=== PATIENT | male | born 1960 | race African-American/Black ===

== ENCOUNTER 2022-02-14 10:22 | Inpatient (IN) | payer MEDICAID ==
[~2022-02-14] VITALS: Ht 170.2 cm; Wt 90.3 kg
[~2022-02-14 10:22] MED LIST: AMLO10TA80 PO; ASPI-1160 PO; FINA5TAB11 PO; KEPP500 MT; OLAN2.5T29 PO; OLAN7.5T18 PO; TAMS-11 PO
[2022-02-14] MEDS ORDERED: LEVETIRACETAM 1000MG PREMIX 100 ML IV ONE (11:00)
[2022-02-14] MEDS ORDERED: SODIUM CHLORIDE 0.9% 1,000 ML IV ONE (11:00)
[2022-02-14 11:07] LABS: BASOPHILS % 0.3 % (0.0-2.0); EOSINOPHILS % 0.5 % (0.0-5.0); HEMATOCRIT. 44.8 % (42.0-52.0); HEMOGLOBIN. 14.5 g/dL (14.0-18.0); MEAN CORPUSCULAR HEMOGLOBIN 30.4 pg (28.0-32.0); MEAN CORPUSCULAR VOLUME 94.3 fL (80.0-94.0); MEAN PLATELET VOLUME 8.3 fl (7.4-10.4); MONOCYTES % 9.4 % (2.0-8.0); NEUTROPHILS % 65.8 % (40.0-76.0); PLATELET 178 x1000/uL (130-400); RED BLOOD CELL COUNT 4.76 mill/uL (4.7-6.1); RED CELL DISTRIBUTION WIDTH 15.4 % (11.6-14.6)
[2022-02-14 11:14] LABS: CHLORIDE 104 mEq/L (98-107)
[2022-02-14 11:21] LABS: ETHANOL BLOOD < 10 mg/dL
[2022-02-14 16:14] VITALS: BP 143/92
[2022-02-14] MEDS ORDERED: GUAIFENESIN 200MG/10ML SUGAR FREE UDC PO PRN (16:15)
[2022-02-14] MEDS ORDERED: IPRATROPIUM/ALBUTEROL 0.5-3(2.5)MG/3ML NEB NEB PRN (16:15)
[2022-02-14] MEDS ORDERED: MAGNESIUM/ALUMINUM HYDROXIDE/SIMETHICONE 30ML UDC PO PRN (16:15)
[2022-02-14] MEDS ORDERED: NITROGLYCERIN 0.4MG TABLET SL SL PRN (16:15)
[2022-02-14] MEDS ORDERED: DIAZEPAM 5 MG/ML 2ML CPJ IV PRN (16:15)
[2022-02-14] MEDS ORDERED: ONDANSETRON HCL 4MG/2ML INJ IV PRN (16:15)
[2022-02-14] MEDS ORDERED: LEVETIRACETAM 500 MG in SODIUM CHLORIDE 0.9% 100 ML IV SCH (16:15)
[2022-02-14] MEDS ORDERED: ACETAMINOPHEN 325MG TABLET PO PRN ×2 (16:15)
[2022-02-14] MEDS ORDERED: KETOROLAC 30MG/ML VIAL IV PRN (16:15)
[2022-02-14] MEDS ORDERED: NA PHOS,M-B/NA PHOS,DI-BA ENEMA 118ML PR PRN (16:15)
[2022-02-14] MEDS ORDERED: DOCUSATE SODIUM 100MG CAPSULE PO PRN (16:15)
[2022-02-14] MEDS ORDERED: ENOXAPARIN 40MG/0.4ML SYR SUBCUT SCH (16:15)
[2022-02-14] MEDS ORDERED: ZOLPIDEM TARTRATE 5MG TABLET PO PRN (16:15)
[2022-02-14 16:33] VITALS: BP 143/92
[2022-02-14] MEDS: ENOXAPARIN 30MG/0.3ML SYR SUBCUT SCH (17:17)
[2022-02-14 18:38] LABS: T4 FREE 0.89 ng/dL (0.76-1.46)
[2022-02-14 18:53] LABS: FOLIC ACID (FOLATE) SERUM 18.9 ng/mL (>5.38)
[2022-02-14 18:57] LABS: CLARITY URINE CLEAR (CLEAR); COLOR URINE YELLOW (YELLOW); KETONES URINE NEGATIVE (NEGATIVE); LEUKOCYTE ESTERASE URINE NEGATIVE (NEGATIVE); NITRITE URINE NEGATIVE (NEGATIVE); OCCULT BLOOD URINE NEGATIVE (NEGATIVE); PROTEIN URINE NEGATIVE (NEGATIVE); SPECIFIC GRAVITY URINE 1.012 (1.005-1.030); UROBILINOGEN URINE 0.2 E.U./dL (0.2-1.0)
[2022-02-14 19:08] LABS: *AMPHETAMINES SCREEN URINE NEGATIVE (NEGATIVE); *BARBITURATES SCREEN URINE NEGATIVE (NEGATIVE); *BENZODIAZEPINES SCREEN URINE PRESUMTIVE POSITIVE (NEGATIVE); *COCAINE SCREEN URINE NEGATIVE (NEGATIVE); CANNABINOID URINE SCREEN NEGATIVE (NEGATIVE); METHADONE URINE SCREEN NEGATIVE (NEGATIVE); OPIATES URINE SCREEN NEGATIVE (NEGATIVE); PHENCYCLIDINE URINE SCREEN NEGATIVE (NEGATIVE)
[2022-02-14 20:00] VITALS: BP 170/110
[2022-02-14] MEDS: FAMOTIDINE 20MG TABLET PO SCH (21:00)
[2022-02-14] MEDS: CLONIDINE 0.1MG TABLET PO PRN (21:00)
[2022-02-14] MEDS: LEVETIRACETAM 500MG PREMIX 100 ML IV SCH (21:01)
[2022-02-15] VITALS: BP 148/85
[2022-02-15 00:14] LABS: CREATINE KINASE 346 IU/L (39-308); CREATINE KINASE MB FRACTION 6.5 ng/mL (0.5-3.6)
[2022-02-15 04:00] VITALS: BP 130/95
[2022-02-15] MEDS: ENOXAPARIN 30MG/0.3ML SYR SUBCUT SCH ×2 (05:40→17:53)
[2022-02-15 07:36] LABS: BASOPHILS % 0.3 % (0.0-2.0); EOSINOPHILS % 0.6 % (0.0-5.0); HEMATOCRIT. 46.3 % (42.0-52.0); HEMOGLOBIN. 15.4 g/dL (14.0-18.0); LYMPHOCYTES % 21.4 % (20.0-50.0); MEAN CORPUSCULAR HEMOGLOBIN 30.6 pg (28.0-32.0); MEAN CORPUSCULAR VOLUME 92.2 fL (80.0-94.0); MEAN PLATELET VOLUME 8.9 fl (7.4-10.4); MONOCYTES % 8.2 % (2.0-8.0); NEUTROPHILS % 69.5 % (40.0-76.0); PLATELET 174 x1000/uL (130-400); RED BLOOD CELL COUNT 5.03 mill/uL (4.7-6.1); RED CELL DISTRIBUTION WIDTH 15.3 % (11.6-14.6)
[2022-02-15 07:53] LABS: CHLORIDE 99 mEq/L (98-107)
[2022-02-15 08:00] VITALS: BP 133/89
[2022-02-15 08:04] LABS: CREATINE KINASE 325 IU/L (39-308); CREATINE KINASE MB FRACTION 5.2 ng/mL (0.5-3.6); PHOSPHORUS 2.3 mg/dL (2.5-4.9)
[2022-02-15] MEDS: FAMOTIDINE 20MG TABLET PO SCH ×2 (08:20→21:04)
[2022-02-15] MEDS: LEVETIRACETAM 500MG PREMIX 100 ML IV SCH ×2 (08:21→21:04)
[2022-02-15] MEDS ORDERED: ASPIRIN 325MG EC TABLET PO SCH (09:00)
[2022-02-15 11:45] VITALS: BP 142/88
[2022-02-15] MEDS: AMLODIPINE 2.5MG TABLET PO SCH (13:14)
[2022-02-15 15:36] VITALS: BP 140/81
[2022-02-15 19:44] VITALS: BP 139/83
[2022-02-16 00:01] VITALS: BP 144/87
[2022-02-16 04:10] VITALS: BP 136/93
[2022-02-16] MEDS: ENOXAPARIN 30MG/0.3ML SYR SUBCUT SCH ×2 (05:18→18:00)
[2022-02-16 07:15] LABS: BASOPHILS % 0.3 % (0.0-2.0); EOSINOPHILS % 0.8 % (0.0-5.0); HEMATOCRIT. 47.3 % (42.0-52.0); HEMOGLOBIN. 15.5 g/dL (14.0-18.0); LYMPHOCYTES % 21.8 % (20.0-50.0); MEAN CORPUSCULAR HEMOGLOBIN 30.3 pg (28.0-32.0); MEAN CORPUSCULAR VOLUME 92.3 fL (80.0-94.0); MEAN PLATELET VOLUME 9.1 fl (7.4-10.4); MONOCYTES % 12.7 % (2.0-8.0); NEUTROPHILS % 64.4 % (40.0-76.0); PLATELET 176 x1000/uL (130-400); RED BLOOD CELL COUNT 5.12 mill/uL (4.7-6.1); RED CELL DISTRIBUTION WIDTH 15.2 % (11.6-14.6)
[2022-02-16 07:51] LABS: CHLORIDE 100 mEq/L (98-107)
[2022-02-16 08:00] VITALS: BP 153/79
[2022-02-16] MEDS: LEVETIRACETAM 500MG PREMIX 100 ML IV SCH ×2 (08:43→21:49)
[2022-02-16] MEDS: FAMOTIDINE 20MG TABLET PO SCH ×2 (08:44→20:09)
[2022-02-16] MEDS: AMLODIPINE 2.5MG TABLET PO SCH (08:44)
[2022-02-16] MEDS: ASPIRIN 81MG EC TABLET PO SCH (08:45)
[2022-02-16 12:00] VITALS: BP 160/96
[2022-02-16 16:00] VITALS: BP 174/94
[2022-02-16] MEDS: CLONIDINE 0.1MG TABLET PO PRN (17:02)
[2022-02-16 20:00] VITALS: BP 134/86
[2022-02-16] MEDS: OLANZAPINE 2.5MG TABLET PO SCH (20:10)
[2022-02-17] VITALS: BP 94/59
[2022-02-17 04:00] VITALS: BP 131/82
[2022-02-17] MEDS: ENOXAPARIN 30MG/0.3ML SYR SUBCUT SCH ×2 (06:05→17:20)
[2022-02-17 08:30] VITALS: BP 129/75
[2022-02-17] MEDS: LEVETIRACETAM 500MG PREMIX 100 ML IV SCH ×2 (08:40→21:11)
[2022-02-17] MEDS ORDERED: OLAN7.5T18 PO (08:48)
[2022-02-17] MEDS ORDERED: KEPP500 MT (08:48)
[2022-02-17] MEDS: FAMOTIDINE 20MG TABLET PO SCH ×2 (09:56→21:11)
[2022-02-17] MEDS: AMLODIPINE 2.5MG TABLET PO SCH (09:56)
[2022-02-17] MEDS: ASPIRIN 81MG EC TABLET PO SCH (09:56)
[2022-02-17 12:00] VITALS: BP 111/74
[2022-02-17 16:00] VITALS: BP 129/78
[2022-02-17 20:00] VITALS: BP 129/80
[2022-02-17] MEDS: OLANZAPINE 2.5MG TABLET PO SCH (21:11)
[2022-02-18] VITALS: BP 150/94
[2022-02-18 04:00] VITALS: BP 159/95
[2022-02-18 05:46] VITALS: BP_SYST 152; BP_DIAS 89; BP_DIAS 92
[2022-02-18] MEDS: ENOXAPARIN 30MG/0.3ML SYR SUBCUT SCH (06:11)
[2022-02-18 08:00] VITALS: BP 147/80
[2022-02-18] MEDS: LEVETIRACETAM 500MG PREMIX 100 ML IV SCH (09:21)
[2022-02-18] MEDS: ASPIRIN 81MG EC TABLET PO SCH (09:21)
[2022-02-18] MEDS: FAMOTIDINE 20MG TABLET PO SCH (09:21)
[2022-02-18] MEDS: AMLODIPINE 2.5MG TABLET PO SCH (09:21)
[2022-02-18 12:00] VITALS: BP 151/92
== END 2022-02-18 13:00 | disposition home or self-care (01) | DRG 53 ==
LOC: ER 10:51 → EDBEDREQTM 12:03 → EDBEDREQ 12:15 → 6WST 13:46 → EDBEDREQ 13:49 → EDBEDREQTM 13:49 → ENRESERV 14:03
PROVIDERS: ADMIT Internal Medicine; ATTEND Internal Medicine
DX: G40.409 Other generalized epilepsy and epileptic syndromes, not intractable, without status epilepticus (principal); I21.4 Non-ST elevation (NSTEMI) myocardial infarction; M62.82 Rhabdomyolysis; F20.9 Schizophrenia, unspecified; I16.0 Hypertensive urgency; J45.909 Unspecified asthma, uncomplicated; I20.0 Unstable angina; E11.9 Type 2 diabetes mellitus without complications; I10 Essential (primary) hypertension; N40.1 Benign prostatic hyperplasia with lower urinary tract symptoms; N39.498 Other specified urinary incontinence; Z85.9 Personal history of malignant neoplasm, unspecified; Z82.49 Family history of ischemic heart disease and other diseases of the circulatory system; Z79.82 Long term (current) use of aspirin; Z79.899 Other long term (current) drug therapy
CPT/HCPCS: 36415; 70551; 71045; 80053; 80305; 80320; 81003; 82550; 82553; 82607; 82746; 82962; 83036; 83540; 83550; 83735; 84100; 84439; 84443; 84484; 85025; 93005; 93306; 93970; 99285; C1893; J1650; J1953; J7030; G0480

== ENCOUNTER 2022-06-06 11:55 | Inpatient (IN) | payer MEDICAID ==
[~2022-06-06] VITALS: Ht 182.9 cm; Wt 92.6 kg
[~2022-06-06 11:55] MED LIST changes: -OLAN2.5T29 PO
[2022-06-06 13:52] LABS: BASOPHILS % 0.2 % (0.0-2.0); EOSINOPHILS % 0.5 % (0.0-5.0); HEMATOCRIT. 44.8 % (42.0-52.0); HEMOGLOBIN. 14.9 g/dL (14.0-18.0); LYMPHOCYTES % 24.8 % (20.0-50.0); MEAN CORPUSCULAR HEMOGLOBIN 30.7 pg (28.0-32.0); MEAN CORPUSCULAR VOLUME 92.4 fL (80.0-94.0); MEAN PLATELET VOLUME 8.6 fl (7.4-10.4); MONOCYTES % 10.7 % (2.0-8.0); NEUTROPHILS % 63.8 % (40.0-76.0); PLATELET 205 x1000/uL (130-400); RED BLOOD CELL COUNT 4.85 mill/uL (4.7-6.1); RED CELL DISTRIBUTION WIDTH 15.1 % (11.6-14.6)
[2022-06-06 14:24] LABS: CHLORIDE 104 mEq/L (98-107)
[2022-06-07] MEDS ORDERED: ONDANSETRON HCL 4MG/2ML INJ IV PRN (08:30)
[2022-06-07] MEDS ORDERED: ACETAMINOPHEN 325MG TABLET PO PRN (08:30)
[2022-06-07] MEDS: AMLODIPINE 10MG TABLET PO SCH (09:11)
[2022-06-07 12:00] VITALS: BP 171/110
[2022-06-07] MEDS: HYDRALAZINE HCL 100MG TABLET PO SCH ×2 (12:56→20:59)
[2022-06-07 13:32] VITALS: BP 171/119
[2022-06-07] MEDS ORDERED: INFLUENZA VACCINE 05/PF 0.5 ML SYRINGE IM ONE (14:00)
[2022-06-07] MEDS ORDERED: PNEUMOCOCCAL 23-VAL P-SAC VAC 0.5 ML IM ONE (14:00)
[2022-06-07 16:00] VITALS: BP 158/62
[2022-06-07 20:00] VITALS: BP 165/92
[2022-06-07] MEDS: OLANZAPINE 5MG TABLET PO SCH (20:59)
[2022-06-08] VITALS: BP 130/80
[2022-06-08 04:00] VITALS: BP 132/84
[2022-06-08 08:00] VITALS: BP 141/87
[2022-06-08] MEDS: AMLODIPINE 10MG TABLET PO SCH (11:16)
[2022-06-08] MEDS: HYDRALAZINE HCL 100MG TABLET PO SCH ×2 (11:16→21:24)
[2022-06-08 12:00] VITALS: BP 140/88
[2022-06-08] MEDS: ENOXAPARIN 40MG/0.4ML SYR SUBCUT SCH (14:23)
[2022-06-08 16:00] VITALS: BP 142/84
[2022-06-08 20:00] VITALS: BP 120/64
[2022-06-08] MEDS: OLANZAPINE 5MG TABLET PO SCH (21:24)
[2022-06-08] MEDS: ATORVASTATIN CALCIUM 40MG TABLET PO SCH (21:24)
[2022-06-08 21:49] LABS: CLARITY URINE CLOUDY (CLEAR); COLOR URINE YELLOW (YELLOW); KETONES URINE 1+ (NEGATIVE); LEUKOCYTE ESTERASE URINE NEGATIVE (NEGATIVE); NITRITE URINE NEGATIVE (NEGATIVE); OCCULT BLOOD URINE NEGATIVE (NEGATIVE); PH URINE 7.5 (4.5-8.0); PROTEIN URINE NEGATIVE (NEGATIVE); SPECIFIC GRAVITY URINE 1.018 (1.005-1.030)
[2022-06-09] VITALS: BP 118/62
[2022-06-09 04:00] VITALS: BP 134/83
[2022-06-09 08:00] VITALS: BP 140/90
[2022-06-09] MEDS: ASPIRIN 81MG TABLET PO SCH (10:12)
[2022-06-09] MEDS: AMLODIPINE 10MG TABLET PO SCH (10:13)
[2022-06-09] MEDS: HYDRALAZINE HCL 100MG TABLET PO SCH ×2 (10:13→21:00)
[2022-06-09 12:00] VITALS: BP 136/83
[2022-06-09] MEDS: ENOXAPARIN 40MG/0.4ML SYR SUBCUT SCH (14:39)
[2022-06-09 16:00] VITALS: BP 140/90
[2022-06-09 20:00] VITALS: BP 107/64
[2022-06-09] MEDS: OLANZAPINE 5MG TABLET PO SCH (20:29)
[2022-06-09] MEDS: ATORVASTATIN CALCIUM 40MG TABLET PO SCH (21:14)
[2022-06-10] VITALS: BP 112/61
[2022-06-10 04:00] VITALS: BP 103/66
[2022-06-10 08:00] VITALS: BP 128/78
[2022-06-10] MEDS: AMLODIPINE 10MG TABLET PO SCH (09:30)
[2022-06-10] MEDS: ASPIRIN 81MG TABLET PO SCH (09:30)
[2022-06-10] MEDS: HYDRALAZINE HCL 100MG TABLET PO SCH ×2 (09:30→20:40)
[2022-06-10 12:00] VITALS: BP 104/68
[2022-06-10] MEDS: ENOXAPARIN 40MG/0.4ML SYR SUBCUT SCH (13:30)
[2022-06-10 16:00] VITALS: BP 103/58
[2022-06-10 20:00] VITALS: BP 124/80
[2022-06-10] MEDS: ATORVASTATIN CALCIUM 40MG TABLET PO SCH (20:40)
[2022-06-10] MEDS: OLANZAPINE 5MG TABLET PO SCH (20:40)
[2022-06-11] VITALS: BP 144/91
[2022-06-11 04:00] VITALS: BP 139/90
[2022-06-11 08:00] VITALS: BP 127/83
[2022-06-11] MEDS: HYDRALAZINE HCL 100MG TABLET PO SCH ×2 (08:48→20:17)
[2022-06-11] MEDS: ASPIRIN 81MG TABLET PO SCH (08:48)
[2022-06-11] MEDS: AMLODIPINE 10MG TABLET PO SCH (08:49)
[2022-06-11 16:00] VITALS: BP 110/76
[2022-06-11] MEDS: ENOXAPARIN 40MG/0.4ML SYR SUBCUT SCH (16:45)
[2022-06-11 20:00] VITALS: BP 140/83
[2022-06-11] MEDS: ATORVASTATIN CALCIUM 40MG TABLET PO SCH (20:17)
[2022-06-11] MEDS: OLANZAPINE 5MG TABLET PO SCH (20:17)
[2022-06-12] VITALS: BP 139/70
[2022-06-12 04:00] VITALS: BP 116/76
[2022-06-12 07:44] VITALS: BP 135/87
[2022-06-12] MEDS: HYDRALAZINE HCL 100MG TABLET PO SCH ×2 (08:27→20:33)
[2022-06-12] MEDS: ASPIRIN 81MG TABLET PO SCH (08:27)
[2022-06-12] MEDS: AMLODIPINE 10MG TABLET PO SCH (08:27)
[2022-06-12 11:30] VITALS: BP 163/98
[2022-06-12] MEDS: ENOXAPARIN 40MG/0.4ML SYR SUBCUT SCH (13:40)
[2022-06-12 15:58] VITALS: BP 130/78
[2022-06-12 20:00] VITALS: BP 137/84
[2022-06-12] MEDS: OLANZAPINE 5MG TABLET PO SCH (20:33)
[2022-06-12] MEDS: ATORVASTATIN CALCIUM 40MG TABLET PO SCH (20:33)
[2022-06-13] VITALS: BP 118/65
[2022-06-13 04:00] VITALS: BP 132/78
[2022-06-13 08:00] VITALS: BP 145/87
[2022-06-13] MEDS: ASPIRIN 81MG TABLET PO SCH (09:09)
[2022-06-13] MEDS: AMLODIPINE 10MG TABLET PO SCH (09:09)
[2022-06-13] MEDS: HYDRALAZINE HCL 100MG TABLET PO SCH ×2 (09:09→20:23)
[2022-06-13 12:00] VITALS: BP 122/71
[2022-06-13] MEDS: ENOXAPARIN 40MG/0.4ML SYR SUBCUT SCH (13:13)
[2022-06-13 16:00] VITALS: BP 125/67
[2022-06-13 20:00] VITALS: BP 147/80
[2022-06-13] MEDS: ATORVASTATIN CALCIUM 40MG TABLET PO SCH (20:23)
[2022-06-13] MEDS: OLANZAPINE 5MG TABLET PO SCH (20:23)
[2022-06-14] VITALS: BP 126/59
[2022-06-14 04:00] VITALS: BP 151/96
[2022-06-14 05:56] VITALS: BP 147/81
[2022-06-14 08:00] VITALS: BP 146/95
[2022-06-14] MEDS: ASPIRIN 81MG TABLET PO SCH (08:28)
[2022-06-14] MEDS: HYDRALAZINE HCL 100MG TABLET PO SCH (08:29)
[2022-06-14] MEDS: AMLODIPINE 10MG TABLET PO SCH (08:29)
[2022-06-14 12:00] VITALS: BP 113/62
[2022-06-14 13:50] VITALS: BP 113/62
[2022-06-14] MEDS: ENOXAPARIN 40MG/0.4ML SYR SUBCUT SCH (14:31)
== END 2022-06-14 16:50 | DRG 203 ==
LOC: ER 11:55 → MICUSO 19:19 → EDBEDREQSVC 19:32 → EDBEDREQ 19:32 → EDBEDREQTM 19:32 → 8WST 06-07 10:58
PROVIDERS: ADMIT Internal Medicine; ATTEND Internal Medicine
DX: M94.0 Chondrocostal junction syndrome [Tietze] (principal); F03.90 Unspecified dementia, unspecified severity, without behavioral disturbance, psychotic disturbance, mood disturbance, and anxiety; E11.9 Type 2 diabetes mellitus without complications; Z20.822 Contact with and (suspected) exposure to COVID-19; G40.909 Epilepsy, unspecified, not intractable, without status epilepticus; I10 Essential (primary) hypertension; J45.909 Unspecified asthma, uncomplicated; Z79.899 Other long term (current) drug therapy; Z82.49 Family history of ischemic heart disease and other diseases of the circulatory system; F20.9 Schizophrenia, unspecified
CPT/HCPCS: 36415; 70551; 71045; 80053; 81003; 84484; 85025; 87426; 90686; 90732; 93005; 93306; 97110; 97116; 97162; 97166; 97530; 97535; 99285; J1650